=== PATIENT | female | born 1995 | race Caucasian/White ===

== ENCOUNTER 2018-01-30 14:09 | Emergency (ER) | payer OTHER ==
[2018-01-30] MEDS ORDERED: Meclizine TAB* 12.5 MG PO ONE (19:29)
--- NOTE | 2018-01-30 19:31 | ED ---
Dizziness - HPI Summary HPI Summary: Patient complains of new onset dizziness starting yesterday, worse today, worse with head movement, walking. Also complains of 2 episodes of unusual vaginal discharge today with no other vaginal symptoms. States she intends to see OB/ PHYSICAL THERAPY AIDE soon for follow-up. Denies fever, headache, focal deficits, vision change, speech change, cough, sore throat, ear pain, SOB, CP, N/V/D, abdominal pain, change in urine, change in BM. Medical history is none. - History Of Current Complaint Chief Complaint: EDDizziness Stated Complaint: DIZZINESS Time Seen by Provider: 01/30/18 15:05 Hx Obtained From: Patient Onset/Duration: Still Present Timing: Intermittent Episode Lasting Severity Initially: Mild Severity Currently: Mild Character: Room Spinning, Lightheaded, Dizzy Aggravating Factor(s): Exertion, Position Change, Change In Head Position Alleviating Factor(s): Nothing Associated Signs And Symptoms: Positive: Negative - Allergies/Home Medications Allergies/Adverse Reactions: Allergies Allergy/AdvReac Type Severity Reaction Status Date / Time No Known Allergies Allergy Verified 01/30/18 18:19 PMH/Surg Hx/FS Hx/Imm Hx Endocrine/Hematology History: Denies: Hx Anticoagulant Therapy Cardiovascular History: Denies: Hx Cardiac Arrest History: Denies: Hx Dialysis Neurological History: Denies: Hx CVA - Surgical History Surgery Procedure, Year, and Place: R elbow surgery Infectious Disease History: No Infectious Disease History: Denies: History Other Infectious Disease, Traveled Outside the [place] in Last 30 Days - Social History Alcohol Use: Occasionally Substance Use Type: Reports: None Smoking Status (MU): Never Smoked Tobacco Review of Systems Constitutional: Negative Eyes: Negative ENT: Negative Cardiovascular: Negative Respiratory: Negative Gastrointestinal: Negative Genitourinary: Negative Musculoskeletal: Negative Skin: Negative Neurological: Other Psychological: Normal All Other Systems Reviewed And Are Negative: Yes Physical Exam - Summary Physical Exam Summary: Neuro exam normal. Romberg normal. Patient ambulates without any indication of imbalance. Triage Information Reviewed: Yes Vital Signs On Initial Exam: Initial Vitals Temp Pulse Resp BP Pulse Ox 97.6 F 71 12 107/73 99 01/30/18 14:12 01/30/18 14:12 01/30/18 14:12 01/30/18 14:12 01/30/18 14:12 Vital Signs Reviewed: Yes Appearance: Positive: Well-Appearing Skin: Positive: Warm Head/Face: Positive: Normal Head/Face Inspection Eyes: Positive: Normal ENT: Positive: Normal ENT inspection Neck: Positive: Supple Respiratory/Lung Sounds: Positive: Clear to Auscultation Cardiovascular: Positive: Normal Abdomen Description: Positive: Nontender Musculoskeletal: Positive: Normal Neurological: Positive: Normal Psychiatric: Positive: Normal AVPU Assessment: Alert - Magee Coma Scale Best Eye Response: 4 - Spontaneous Best Motor Response: 6 - Obeys Commands Best Verbal Response: 5 - Oriented Coma Scale Total: 15 Diagnostics - Vital Signs Vital Signs Temp Pulse Resp BP Pulse Ox 01/30/18 17:55 97.2 F 61 12 114/71 100 01/30/18 14:12 97.6 F 71 12 107/73 99 - Laboratory Lab Statement: Any lab studies that have been ordered have been reviewed, and results considered in the medical decision making process. - EKG 1 Cardiac Rate: Bradycardia EKG Rhythm: Sinus Bradycardia ST Segment: Non-Specific Ectopy: None Dizzy Course/Dx - Course Course Of Treatment: Patient complains of new onset dizziness starting yesterday , worse today, worse with head movement, walking. Also complains of 2 episodes of unusual vaginal discharge today with no other vaginal symptoms. States she intends to see EVICTION SPECIALIST soon for follow-up. Denies fever, headache, focal deficits , vision change, speech change, cough, sore throat, ear pain, SOB, CP, N/V/D, abdominal pain, change in urine, change in BM. Medical history is none. Physical exam:Neuro exam normal. Romberg normal. Patient ambulates without any indication of imbalance. Patient improved with meclizine. Vital signs normal. EKG normal. Rx for meclizine. - Diagnoses Provider Diagnoses: BPPV (benign paroxysmal positional vertigo) Discharge - Sign-Out/Discharge Documenting (check all that apply): Patient Departure - Discharge Plan Condition: Stable Disposition: HOME Prescriptions: Meclizine TAB* [Antivert 12.5 TAB*] 25 mg PO TID PRN 10 Days #30 tab PRN Reason: Dizziness Patient Education Materials: Benign Paroxysmal Positional Vertigo (ED), Dizziness (ED) Referrals: Non Staff,Doctor [Primary Care Provider] - Additional Instructions: Follow-up with primary care. Return to the ED for any new or worsening symptoms - Billing Disposition and Condition Condition: STABLE Disposition: Home
[2018-01-30 20:25] VITALS: BP 109/71
== END 2018-01-30 20:24 | disposition home or self-care (01) ==
LOC: ED 14:09
DX: H81.10 Benign paroxysmal vertigo, unspecified ear (principal); R42 Dizziness and giddiness
CPT/HCPCS: 93005; 99282; A9270-GY